=== PATIENT | female | born 1955 | race Caucasian/White ===

== ENCOUNTER → 2017-03-02 | Outpatient (CLI) | payer MEDICARE ==
[2017-03-02 10:13] LABS: HEMOGLOBIN 14.5 gm/dl (12.3-15.3); RED BLOOD COUNT 4.35 M/UL (4.00-5.10); WHITE BLOOD COUNT 7.1 K/UL (4.5-11.0)
[2017-03-02 11:00] LABS: BUN/CREATININE RATIO 23 (0-10)
== END ==
LOC: LAB 09:19
PROVIDERS: Nurse Practitioner Primary Care
DX: E88.81 Metabolic syndrome and other insulin resistance (principal); E05.90 Thyrotoxicosis, unspecified without thyrotoxic crisis or storm; Z79.899 Other long term (current) drug therapy; E78.5 Hyperlipidemia, unspecified
CPT/HCPCS: 36415; 80053; 80061; 82043; 82570; 82607; 83036; 84439; 84443; 85027

== ENCOUNTER → 2020-12-27 | Outpatient (CLI) | payer MEDICARE, OTHER ==
[~2020-12-27] MED LIST: AUGMENTIN 875-1 EACH PO; CRESTOR20 MG PO; CYMBALTA20 MG PO; FLONASE 0.05% N16 GM; GLUCOPHAGE500 MG PO; HUMALOG 10100 UNITS/ SC; K-DUR TAB 20 M20 MEQ PO; KEPPRA 500 MG500 MG PO; VALIUM 5 MG TAB5 MG PO; ZOFRAN4 MG PO
== END ==
LOC: US 08:30
DX: R53.83 Other fatigue (principal); M25.511 Pain in right shoulder; M54.2 Cervicalgia; R11.0 Nausea; M19.011 Primary osteoarthritis, right shoulder; M50.30 Other cervical disc degeneration, unspecified cervical region; K76.0 Fatty (change of) liver, not elsewhere classified; K80.80 Other cholelithiasis without obstruction
CPT/HCPCS: 72050; 73030; 76705

== ENCOUNTER 2021-01-14 11:51 | Inpatient (IN) | payer MEDICARE, OTHER ==
[~2021-01-14] VITALS: Ht 154.9 cm; Wt 72.6 kg
[~2021-01-14 11:51] MED LIST changes: -CRESTOR20 MG PO; -CYMBALTA20 MG PO; -FLONASE 0.05% N16 GM; -GLUCOPHAGE500 MG PO; -HUMALOG 10100 UNITS/ SC; -KEPPRA 500 MG500 MG PO; -VALIUM 5 MG TAB5 MG PO
[2021-01-14 12:57] LABS: HEMOGLOBIN 15.6 gm/dl (12.3-15.3); RED BLOOD COUNT 4.61 M/UL (4.00-5.10); WHITE BLOOD COUNT 9.2 K/UL (4.5-11.0)
[2021-01-14 13:42] LABS: BUN/CREATININE RATIO 26 (0-10)
[2021-01-14] MEDS ORDERED: GLUCOPHAGE500 MG PO (16:51)
[2021-01-14] MEDS ORDERED: VALIUM 5 MG TAB5 MG PO (16:51)
[2021-01-14] MEDS ORDERED: CYMBALTA20 MG PO (16:52)
[2021-01-14] MEDS ORDERED: FLONASE 0.05% N16 GM (16:52)
[2021-01-14] MEDS ORDERED: CRESTOR20 MG PO (16:52)
--- NOTE | 2021-01-14 20:04 | NUR ---
DURING TRANSFER FROM [facility] TO BED THE MATTRESS ON THE BED SCOOTED WITH PATIENT. PATIENT WAS HELD BY TWO PEOPLE IN ORDER TO GET MATTRESS BACK EVEN ON THE BED. PATIENT TRANSFERRED SAFELY ONCE THAT FIXED.
[2021-01-15 04:19] LABS: HEMOGLOBIN 13.9 gm/dl (12.3-15.3)
[2021-01-15 04:22] LABS: RED BLOOD COUNT 4.13 M/UL (4.00-5.10); WHITE BLOOD COUNT 5.9 K/UL (4.5-11.0)
[2021-01-15 04:53] LABS: BUN/CREATININE RATIO 28 (0-10)
[2021-01-16] MEDS ORDERED: HUMALOG 10100 UNITS/ SC (09:22)
[2021-01-16] MEDS ORDERED: K-DUR TAB 20 M20 MEQ PO (09:22)
[2021-01-16] MEDS ORDERED: KEPPRA 500 MG500 MG PO (09:22)
--- NOTE | 2021-01-16 18:55 | NUR ---
REPORT CALLED TO [place] AT [facility]. PAPERS FAXED TO [facility] FOR TRANSPORTATION .
== END 2021-01-16 23:17 | disposition short-term general hospital (02) | DRG 40 ==
LOC: ER1 11:51 → CDU 16:46 → MED SURG 4 16:46
PROVIDERS: Emergency Medicine; Physician Assistant; ADMIT Internal Medicine
PROC: 0JB63ZX Excision of Chest Subcutaneous Tissue and Fascia, Percutaneous Approach, Diagnostic (ICD-10-PCS; principal; 2021-01-16)
PROC: 07B13ZX Excision of Right Neck Lymphatic, Percutaneous Approach, Diagnostic (ICD-10-PCS; 2021-01-16)
DX: C79.31 Secondary malignant neoplasm of brain (principal); G93.6 Cerebral edema; E43 Unspecified severe protein-calorie malnutrition; N30.00 Acute cystitis without hematuria; E87.1 Hypo-osmolality and hyponatremia; G93.49 Other encephalopathy; C77.0 Secondary and unspecified malignant neoplasm of lymph nodes of head, face and neck; Z20.822 Contact with and (suspected) exposure to COVID-19; C80.1 Malignant (primary) neoplasm, unspecified; G47.33 Obstructive sleep apnea (adult) (pediatric); J44.9 Chronic obstructive pulmonary disease, unspecified; E11.9 Type 2 diabetes mellitus without complications; E87.6 Hypokalemia; E78.5 Hyperlipidemia, unspecified; I10 Essential (primary) hypertension; F41.9 Anxiety disorder, unspecified; R63.4 Abnormal weight loss; E66.9 Obesity, unspecified; Z98.51 Tubal ligation status; Z98.84 Bariatric surgery status; Z82.3 Family history of stroke; Z87.891 Personal history of nicotine dependence; Z79.4 Long term (current) use of insulin; Z68.30 Body mass index [BMI] 30.0-30.9, adult
CPT/HCPCS: 36415; 70450; 71045; 71260; 76942; 80053; 81001; 82962; 83036; 83605; 83735; 84100; 84132; 85025; 85610; 88341; 88342; 96372; 96374; 96375; 96376; 99285; J0696; J1100; J2405; J7030; Q9967; U0002